=== PATIENT | female | born 1960 | race Caucasian/White ===

== ENCOUNTER 2019-11-28 08:00 | Day surgery (SDC) | payer BC ==
[~2019-11-28] VITALS: Ht 144.8 cm; Wt 74.8 kg
[2019-11-28 08:53] LABS: BASOPHILS % (AUTO) 0.4 % (0.0-2.0); EOSINOPHILS # (AUTO) 0.1 K/uL (0-0.4); EOSINOPHILS % (AUTO) 0.8 % (0.0-4.0); HEMATOCRIT 40.7 % (36-48); HEMOGLOBIN 13.4 g/dL (12.0-16.0); LYMPHOCYTES # (AUTO) 2.8 K/uL (2.5-16.5); LYMPHOCYTES % (AUTO) 34.7 % (20.5-51.1); MEAN CORPUSCULAR HEMOGLOBIN 32 pg (27-31); MEAN CORPUSCULAR HGB CONC 33 g/dL (33-37); MEAN CORPUSCULAR VOLUME 96.1 fL (80-94); MONOCYTES # (AUTO) 0.6 K/uL (0.8-1.0); MONOCYTES % (AUTO) 7.7 % (1.7-9.3); NEUTROPHILS # (AUTO) 4.6 K/uL (1.8-7.7); NEUTROPHILS % (AUTO) 56.4 % (42.2-75.2); PLATELET COUNT (AUTO) 288 K/uL (140-450); RED BLOOD CELL COUNT(AUTO) 4.24 MIL/uL (4.20-5.40); RED CELL DISTRIBUTION WIDTH 13.4 % (11.6-13.7); WHITE BLOOD COUNT (AUTO) 8.1 K/uL (4.8-10.8)
[2019-11-28] MEDS ORDERED: BUPIVACAINE-MPF 0.25% 30 ML VIAL INJ ONE (10:12)
[2019-11-28 10:21] LABS: ANION GAP 12.9 (8-16); CARBON DIOXIDE 29.6 mmol/L (21-32); CREATININE 0.8 mg/dL (0.6-1.3); POTASSIUM 3.5 mmol/L (3.5-5.1); TOTAL BILIRUBIN 0.3 mg/dL (0.0-1.0)
[2019-11-28] MEDS ORDERED: ONDANSETRON 4 MG/2 ML VIAL ONE (10:57)
[2019-11-28] MEDS ORDERED: MIDAZOLAM 2 MG/2 ML VIAL ONE (10:57)
[2019-11-28] MEDS ORDERED: DEXAMETHASONE 4 MG/ML VIAL ONE (10:57)
[2019-11-28] MEDS ORDERED: LIDOCAINE 2% 100 MG/5 ML SYR IVP ONE (10:57)
[2019-11-28] MEDS ORDERED: PROPOFOL 200 MG/20 ML VIAL IV ONE (10:57)
[2019-11-28] MEDS ORDERED: SEVOFLURANE 250 ML BTL INH ONE (10:57)
[2019-11-28] MEDS ORDERED: fentaNYL 0.05 MG/ML VIAL ONE (10:57)
[2019-11-28] MEDS ORDERED: LACTATED RINGERS 1,000 ML IV SCH (11:26)
[2019-11-28] MEDS ORDERED: MEPERIDINE 25 MG/ML SYR IVP PRN (11:30)
[2019-11-28] MEDS ORDERED: HYDROmorphone 1 MG/ML AMP IVP PRN ×2 (11:30→12:20)
[2019-11-28] MEDS ORDERED: ONDANSETRON 4 MG/2 ML VIAL IVP PRN ×2 (11:30→12:20)
[2019-11-28] MEDS ORDERED: MORPHINE SULFATE 4 MG/ML SYR IV PRN (12:20)
[2019-11-28] MEDS ORDERED: MORPHINE SULFATE 2 MG/ML SYR IVP PRN (12:20)
[2019-11-28] MEDS ORDERED: HYDROcodone/APAP 5/325 MG 1 TAB TAB PO PRN (12:20)
== END 2019-11-28 13:30 | disposition home or self-care (01) ==
LOC: MDS 08:00 → MMU 08:00 → MDS 13:30
PROVIDERS: ATTEND Surgery
DX: N64.52 Nipple discharge (principal); D05.12 Intraductal carcinoma in situ of left breast; F41.9 Anxiety disorder, unspecified; F32.9 Major depressive disorder, single episode, unspecified; I10 Essential (primary) hypertension; N64.4 Mastodynia; Z98.51 Tubal ligation status
CPT/HCPCS: 19120; 36415; 71045; 80053; 85025; 88307; 88313; 88342; 93005; J0690; J1100; J2001; J2250; J2405; J2704; J3010; J3490; J7030; J7060; J7120; Q0092